=== PATIENT | male | born 1990 | race Caucasian/White ===

== ENCOUNTER 2017-02-15 04:54 | Emergency (ER) | payer MEDICAID | END 2017-02-15 06:35 | disposition home or self-care (01) | LOC: EDBD 04:54 → D.ER 04:54 | DX: R51 Headache (principal); R11.0 Nausea; G40.909 Epilepsy, unspecified, not intractable, without status epilepticus ==

== ENCOUNTER 2017-04-02 12:23 | Emergency (ER) | payer MEDICAID | END 2017-04-02 14:05 | disposition home or self-care (01) | LOC: D.ER 12:23 | DX: J20.9 Acute bronchitis, unspecified (principal); J01.90 Acute sinusitis, unspecified; J06.9 Acute upper respiratory infection, unspecified; G40.909 Epilepsy, unspecified, not intractable, without status epilepticus ==

== ENCOUNTER 2017-04-26 12:25 | Emergency (ER) | payer MEDICAID | END 2017-04-26 15:35 | disposition home or self-care (01) | LOC: D.ER 12:25 | DX: M54.5 Low back pain (principal) ==

== ENCOUNTER 2018-01-19 19:47 | Emergency (ER) | payer MEDICAID ==
[~2018-01-19] VITALS: Ht 175.3 cm; Wt 90.9 kg
[2018-01-19 19:51] VITALS: Ht 175.3 cm; Wt 90.9 kg
[2018-01-19] MEDS ORDERED: SEIZURE MEDS (19:52)
[2018-01-19] MEDS ORDERED: VOLTAREN75 MG PO (21:08)
[2018-01-19] MEDS ORDERED: MUPIROCIN22 GM TOPICAL (21:08)
[2018-01-19 21:40] VITALS: BP 114/78
== END 2018-01-19 21:39 | disposition home or self-care (01) ==
LOC: D.ER 19:47
DX: S61.411A Laceration without foreign body of right hand, initial encounter (principal); W26.9XXA Contact with unspecified sharp object(s), initial encounter; Y93.89 Activity, other specified; Y92.89 Other specified places as the place of occurrence of the external cause; G40.909 Epilepsy, unspecified, not intractable, without status epilepticus

== ENCOUNTER 2018-01-27 15:45 | Emergency (ER) | payer MEDICAID ==
[~2018-01-27] VITALS: Ht 175.3 cm; Wt 90.9 kg
[~2018-01-27 15:45] MED LIST: MUPIROCIN22 GM TOPICAL; SEIZURE MEDS; VOLTAREN75 MG PO
[2018-01-27 15:55] VITALS: Ht 175.3 cm; Wt 90.9 kg
[2018-01-27 16:50] VITALS: BP 124/76
== END 2018-01-27 16:35 | disposition home or self-care (01) ==
LOC: D.ER 15:45
DX: S61.411D Laceration without foreign body of right hand, subsequent encounter (principal); X58.XXXD Exposure to other specified factors, subsequent encounter

== ENCOUNTER 2018-01-30 14:54 | Emergency (ER) | payer MEDICAID ==
[~2018-01-30] VITALS: Ht 175.3 cm; Wt 90.9 kg
[2018-01-30 15:08] VITALS: Ht 175.3 cm; Wt 90.9 kg
[2018-01-30] MEDS ORDERED: DEPAKOTE500 MG PO (15:11)
[2018-01-30] MEDS ORDERED: KEPPRA500 MG PO (15:11)
[2018-01-30 16:40] VITALS: BP 130/74
== END 2018-01-30 16:40 | disposition home or self-care (01) ==
LOC: D.ER 14:54
DX: S61.411D Laceration without foreign body of right hand, subsequent encounter (principal); X58.XXXD Exposure to other specified factors, subsequent encounter; Z48.02 Encounter for removal of sutures

== ENCOUNTER 2018-03-24 22:35 | Emergency (ER) | payer MEDICAID ==
[~2018-03-24] VITALS: Ht 175.3 cm; Wt 89.1 kg
[~2018-03-24 22:35] MED LIST changes: +DEPAKOTE500 MG PO; +KEPPRA500 MG PO
[2018-03-24 22:45] VITALS: Ht 175.3 cm; Wt 89.1 kg
[2018-03-24] MEDS ORDERED: DUEXIS 800-26.1 EACH PO (23:26)
[2018-03-24 23:43] VITALS: BP 141/89
== END 2018-03-24 23:43 | disposition home or self-care (01) ==
LOC: D.ER 22:35
DX: S99.921A Unspecified injury of right foot, initial encounter (principal); W20.8XXA Other cause of strike by thrown, projected or falling object, initial encounter; Y93.89 Activity, other specified; Y92.013 Bedroom of single-family (private) house as the place of occurrence of the external cause; G40.909 Epilepsy, unspecified, not intractable, without status epilepticus; F17.200 Nicotine dependence, unspecified, uncomplicated

== ENCOUNTER 2018-10-05 08:41 | Emergency (ER) | payer MEDICAID ==
[~2018-10-05] VITALS: Ht 175.3 cm; Wt 95.5 kg
[~2018-10-05 08:41] MED LIST changes: +DUEXIS 800-26.1 EACH PO
[2018-10-05 08:56] VITALS: Ht 175.3 cm; Wt 95.5 kg
[2018-10-05] MEDS ORDERED: FLUTICASONE PRO16 GM NASAL (10:24)
[2018-10-05] MEDS ORDERED: CLEOCIN HCL300 MG PO (10:24)
[2018-10-05 10:34] VITALS: BP 130/87
== END 2018-10-05 10:32 | disposition home or self-care (01) ==
LOC: D.ER 08:41
DX: R68.84 Jaw pain (principal); J01.90 Acute sinusitis, unspecified

== ENCOUNTER 2019-01-10 13:10 | Emergency (ER) | payer MEDICAID ==
[~2019-01-10] VITALS: Ht 175.3 cm; Wt 88.0 kg
[~2019-01-10 13:10] MED LIST changes: +CLEOCIN HCL300 MG PO; +FLUTICASONE PRO16 GM NASAL
[2019-01-10 13:16] VITALS: Ht 175.3 cm; Wt 88.0 kg
[2019-01-10] MEDS ORDERED: FOLIC ACID0.8 MG PO (13:22)
[2019-01-10 14:57] LABS: BASOPHILS 0.2 % (0-2); HEMATOCRIT 43.6 % (42.0-54.0); HEMOGLOBIN 14.9 g/dL (13.5-17.5); IMMATURE GRANULOCYTES 0.7 % (0-5); LYMPHOCYTES 35.8 % (15-50); MCH 31.4 pg (26.0-34.0); MCHC 34.2 g/dL (31.0-37.0); MCV 91.8 fL (80.0-100.0); MEAN PLATELET VOLUME 11.9 fL (7.4-10.4); MONOCYTES 9.4 % (2-11); NEUTROPHILS 52.9 % (40-80); PLATELET COUNT 124 10x3/uL (130-400); RBC 4.75 10x6/uL (4.20-6.10); RDW 12.9 % (11.5-14.5)
[2019-01-10 15:12] LABS: ALBUMIN 3.3 g/dL (3.4-5.0); ALKALINE PHOSPHATASE 60 U/L (46-116); ALT (SGPT) 10 U/L (10-68); BILIRUBIN - TOTAL 0.28 mg/dL (0.2-1.3); CALC OSMOLALITY 276 mosm/kg (275-300); CALCIUM 8.2 mg/dL (8.5-10.1); CARBON DIOXIDE 26.9 mmol/L (21.0-32.0); CHLORIDE - SERUM 104 mmol/L (98-107); GLUCOSE 100 mg/dL (74-106); PROTEIN - SERUM 7.5 g/dL (6.4-8.2); SODIUM 140 mmol/L (136-145); UREA NITROGEN 8 mg/dL (7-18); eGFR NON AFRICAN AMERICAN > 90 mL/min (90-120)
[2019-01-10] MEDS ORDERED: OMEPRAZOLE40 MG PO (16:42)
[2019-01-10] MEDS ORDERED: CARAFATE1 G PO (16:42)
[2019-01-10 17:19] VITALS: BP 124/85
== END 2019-01-10 17:06 | disposition home or self-care (01) ==
LOC: D.ER 13:10
PROVIDERS: Emergency Medicine
DX: K29.70 Gastritis, unspecified, without bleeding (principal)

== ENCOUNTER 2019-04-06 11:52 | Emergency (ER) | payer MEDICAID ==
[~2019-04-06] VITALS: Ht 175.3 cm; Wt 97.7 kg
[~2019-04-06 11:52] MED LIST changes: +CARAFATE1 G PO; +FOLIC ACID0.8 MG PO; +OMEPRAZOLE40 MG PO
[2019-04-06 12:19] VITALS: Ht 175.3 cm; Wt 97.7 kg
[2019-04-06 12:44] LABS: BASOPHILS 0.3 % (0-2); EOSINOPHILS 0.8 % (0-7); HEMATOCRIT 47.3 % (42.0-54.0); HEMOGLOBIN 15.7 g/dL (13.5-17.5); IMMATURE GRANULOCYTES 0.6 % (0-5); LYMPHOCYTES 27.2 % (15-50); MCH 31.4 pg (26.0-34.0); MCHC 33.2 g/dL (31.0-37.0); MCV 94.6 fL (80.0-100.0); MEAN PLATELET VOLUME 11.9 fL (7.4-10.4); MONOCYTES 8.7 % (2-11); NEUTROPHILS 62.4 % (40-80); PLATELET COUNT 139 10x3/uL (130-400); RDW 12.8 % (11.5-14.5); WBC 7.1 10x3/uL (4.8-10.8)
[2019-04-06 12:51] LABS: CALC OSMOLALITY 276 mosm/kg (275-300); CALCIUM 8.6 mg/dL (8.5-10.1); CARBON DIOXIDE 32.2 mmol/L (21.0-32.0); CHLORIDE - SERUM 101 mmol/L (98-107); GLUCOSE 111 mg/dL (74-106); POTASSIUM - SERUM 3.9 mmol/L (3.5-5.1); SODIUM 138 mmol/L (136-145); UREA NITROGEN 12 mg/dL (7-18); eGFR NON AFRICAN AMERICAN > 90 mL/min (90-120)
[2019-04-06 12:58] LABS: ALBUMIN 3.9 g/dL (3.4-5.0); ALKALINE PHOSPHATASE 72 U/L (46-116); ALT (SGPT) 13 U/L (10-68); BILIRUBIN - TOTAL 0.38 mg/dL (0.2-1.3); PROTEIN - SERUM 8.4 g/dL (6.4-8.2)
[2019-04-06 13:02] LABS: APPEARANCE CLEAR (CLEAR); BILIRUBIN NEGATIVE (NEGATIVE); COLOR YELLOW (YELLOW); GLUCOSE NEGATIVE (NEGATIVE); KETONE NEGATIVE (NEGATIVE); NITRITE NEGATIVE (NEGATIVE); PROTEIN NEGATIVE (NEGATIVE); UROBILINOGEN NORMAL (NORMAL)
[2019-04-06] MEDS ORDERED: ZOFRAN ODT4 MG/UDTAB PO (14:33)
[2019-04-06] MEDS ORDERED: LOMOTIL 2.5-0.1 EAC1 PO (14:33)
[2019-04-06 15:02] VITALS: BP 113/75
== END 2019-04-06 15:00 | disposition home or self-care (01) ==
LOC: D.ER 11:52
PROVIDERS: Family Medicine
DX: K52.9 Noninfective gastroenteritis and colitis, unspecified (principal)

== ENCOUNTER 2019-04-23 11:18 | Emergency (ER) | payer MEDICAID ==
[~2019-04-23] VITALS: Ht 175.3 cm; Wt 88.6 kg
[~2019-04-23 11:18] MED LIST changes: +LOMOTIL 2.5-0.1 EAC1 PO; +ZOFRAN ODT4 MG/UDTAB PO
[2019-04-23 11:31] VITALS: Ht 175.3 cm; Wt 88.6 kg
[2019-04-23 12:12] LABS: BASOPHILS 0.5 % (0-2); EOSINOPHILS 1.3 % (0-7); HEMATOCRIT 47.2 % (42.0-54.0); HEMOGLOBIN 16.1 g/dL (13.5-17.5); IMMATURE GRANULOCYTES 0.4 % (0-5); LYMPHOCYTES 40.9 % (15-50); MCH 30.9 pg (26.0-34.0); MCHC 34.1 g/dL (31.0-37.0); MCV 90.6 fL (80.0-100.0); MONOCYTES 11.5 % (2-11); NEUTROPHILS 45.4 % (40-80); PLATELET COUNT 130 10x3/uL (130-400); RBC 5.21 10x6/uL (4.20-6.10); WBC 5.5 10x3/uL (4.8-10.8)
[2019-04-23 13:14] LABS: ALBUMIN 1.8 g/dL (3.4-5.0); ALKALINE PHOSPHATASE 35 U/L (46-116); ALT (SGPT) 8 U/L (10-68); BILIRUBIN - TOTAL 0.23 mg/dL (0.2-1.3); CALC OSMOLALITY 288 mosm/kg (275-300); CARBON DIOXIDE 17.5 mmol/L (21.0-32.0); CREATININE - SERUM 0.5 mg/dL (0.6-1.3); GLUCOSE 72 mg/dL (74-106); LIPASE 55 U/L (73-393); SODIUM 147 mmol/L (136-145); UREA NITROGEN 6 mg/dL (7-18); VALPROIC ACID (DEPAKOTE) 30.7 ug/mL (50.0-100.0); eGFR NON AFRICAN AMERICAN > 90 mL/min (90-120)
[2019-04-23 13:20] LABS: MAGNESIUM - SERUM 0.9 mg/dL (1.8-2.4)
[2019-04-23 13:21] LABS: CHLORIDE - SERUM 119 mmol/L (98-107)
[2019-04-23 14:08] LABS: APPEARANCE CLEAR (CLEAR); BILIRUBIN NEGATIVE (NEGATIVE); COLOR YELLOW (YELLOW); GLUCOSE NEGATIVE (NEGATIVE); KETONE LARGE mg/dL (NEGATIVE); NITRITE NEGATIVE (NEGATIVE); PROTEIN NEGATIVE (NEGATIVE); UROBILINOGEN NORMAL (NORMAL)
[2019-04-23 14:55] LABS: UDS - AMPHET NEGATIVE QUAL (NEGATIVE); UDS - BARB NEGATIVE QUAL (NEGATIVE); UDS - BENZO NEGATIVE QUAL (NEGATIVE); UDS - COCAINE NEGATIVE QUAL (NEGATIVE); UDS - OPIATE NEGATIVE QUAL (NEGATIVE); UDS - PCP NEGATIVE QUAL (NEGATIVE); UDS - THC NEGATIVE QUAL (NEGATIVE)
[2019-04-23 15:52] LABS: CREATINE KINASE 28 UL (21-232); TROPONIN-I 0.029 ng/mL (0.000-0.060)
[2019-04-23 18:19] VITALS: BP 112/67
== END 2019-04-23 19:08 | disposition other institution (70) ==
LOC: D.ER 11:18
PROVIDERS: Family Medicine
DX: G40.901 Epilepsy, unspecified, not intractable, with status epilepticus (principal); J69.0 Pneumonitis due to inhalation of food and vomit; E88.09 Other disorders of plasma-protein metabolism, not elsewhere classified; E46 Unspecified protein-calorie malnutrition; E83.51 Hypocalcemia; E87.6 Hypokalemia; E83.42 Hypomagnesemia; J96.90 Respiratory failure, unspecified, unspecified whether with hypoxia or hypercapnia

== ENCOUNTER 2019-06-23 21:47 | Emergency (ER) | payer MEDICAID ==
[~2019-06-23] VITALS: Ht 175.3 cm; Wt 95.0 kg
[2019-06-23 22:00] VITALS: Ht 175.3 cm; Wt 95.0 kg
[2019-06-23 23:15] VITALS: BP 152/81
== END 2019-06-23 23:15 | disposition home or self-care (01) ==
LOC: D.ER 21:47
DX: K21.9 Gastro-esophageal reflux disease without esophagitis (principal)

== ENCOUNTER 2019-07-10 16:00 | Emergency (ER) | payer MEDICAID ==
[2019-06-23 22:00] VITALS: BMI 30.9
== END 2019-07-10 16:51 | disposition left against medical advice (07) ==
LOC: D.ER 16:00
DX: M79.673 Pain in unspecified foot (principal); Z53.21 Procedure and treatment not carried out due to patient leaving prior to being seen by health care provider